=== PATIENT | male | born 1965 | race African-American/Black ===

== ENCOUNTER → 2021-09-06 | Outpatient (CLI) | payer OTHER ==
--- NOTE | 2021-09-06 15:35 | KCIC ---
EXAM: Lumbar spine MRI without contrast. HISTORY: Pain. TECHNIQUE: Multiplanar, multisequence magnetic resonance imaging of the lumbar spine was performed wi thout contrast. COMPARISON: CT dated 12/22/2020. FINDINGS: There is mild lumbar scoliosis. There is mild endplate remodeling and disc desiccation at t he mid lower lumbar levels. There is no suspicious osseous lesion. The conus terminates at T12-L1. At L1-L2, there is no stenosis. At L2-L3, there is endplate remodeling. There is mild left foraminal stenosis. At L3-L4, there is a left foraminal to extra foraminal disc protrusion superimposed on a disc bulge a nd endplate remodeling. There is mild bilateral foraminal stenosis. At L4-L5, there is a shallow posterior central disc protrusion and annular tear. There is also a shal low left foraminal to extraforaminal disc protrusion superimposed on a disc bulge and endplate remode ling. There is mild bilateral foraminal stenosis. At L5-S1, there is a broad-based left paracentral to lateral recess disc protrusion superimposed on a disc bulge and endplate remodeling. There is mild bilateral facet arthropathy. There is mild right a nd mild to moderate left foraminal stenosis with abutment the exiting left L5 nerve root. There is na rrowing of the left lateral recess and abutment the traversing left S1 nerve root. IMPRESSION: Multilevel degenerative change involving the lumbar spine, described in detail above. Thi s results in mild left foraminal stenosis at L2-L3, mild bilateral foraminal stenosis at L3-L4 and L4 -L5, and mild right and mild to moderate left foraminal stenosis with abutment the exiting left L5 ne rve root and narrowing of the left lateral recess with abutment the traversing left S1 nerve root at L5-S1. Electronically signed by: Nanci Cantrell MD (09/06/2021 3:33 PM) [id number]
== END ==
LOC: KCIC MRI 14:04
PROVIDERS: ATTEND Nurse Practitioner Family
DX: M47.816 Spondylosis without myelopathy or radiculopathy, lumbar region (principal); M48.07 Spinal stenosis, lumbosacral region; M51.27 Other intervertebral disc displacement, lumbosacral region; M41.86 Other forms of scoliosis, lumbar region
CPT/HCPCS: 72148